=== PATIENT | female | born 1955 | race Caucasian/White ===

== ENCOUNTER 2018-07-04 13:29 | Emergency (ER) | payer OTHER ==
[~2018-07-04] VITALS: Ht 167.6 cm; Wt 92.3 kg
[2018-07-04 13:50] VITALS: Ht 167.6 cm; Wt 92.3 kg
[2018-07-04] MEDS ORDERED: GLUCOPHAGE500 MG PO (13:50)
[2018-07-04] MEDS ORDERED: PERCOCET 10-321 EAC1 PO (13:51)
[2018-07-04 15:43] VITALS: BP 140/71
== END 2018-07-04 15:45 | disposition home or self-care (01) ==
LOC: D.ER 13:29
DX: M17.12 Unilateral primary osteoarthritis, left knee (principal)

== ENCOUNTER 2018-08-08 08:00 | Outpatient (CLI) | payer OTHER ==
[~2018-08-08 08:00] MED LIST: GLUCOPHAGE500 MG PO; PEPCID AC20 MG PO; PERCOCET 10-321 EAC1 PO
[2018-08-13 08:59] VITALS: BMI 32.3
== END 2018-08-08 23:59 | disposition home or self-care (01) ==
LOC: D.OPS 08:00
PROVIDERS: ATTEND Orthopaedic Surgery
DX: S83.242A Other tear of medial meniscus, current injury, left knee, initial encounter (principal)

== ENCOUNTER 2018-08-13 08:00 | Day surgery (SDC) | payer OTHER ==
[2018-08-08 08:20] LABS: BASOPHILS 1.2 % (0-2); EOSINOPHILS 6.2 % (0-7); HEMATOCRIT 39.8 % (36.0-48.0); HEMOGLOBIN 13.4 g/dL (12-16); IMMATURE GRANULOCYTES 0.2 % (0-5); MCH 30.9 pg (26.0-34.0); MCHC 33.7 g/dL (31.0-37.0); MCV 91.9 fL (80.0-100.0); MEAN PLATELET VOLUME 9.1 fL (7.4-10.4); MONOCYTES 8.7 % (2-11); NEUTROPHILS 42.7 % (40-80); PLATELET COUNT 230 10x3/uL (130-400); RBC 4.33 10x6/uL (4.00-5.40); RDW 12.7 % (11.5-14.5); WBC 5.6 10x3/uL (4.8-10.8)
[2018-08-08 08:28] LABS: CALC OSMOLALITY 285 mosm/kg (275-300); CALCIUM 9.1 mg/dL (8.5-10.1); CARBON DIOXIDE 31.8 mmol/L (21.0-32.0); CHLORIDE - SERUM 105 mmol/L (98-107); CREATININE - SERUM 0.7 mg/dL (0.6-1.3); GLUCOSE 78 mg/dL (74-106); POTASSIUM - SERUM 4.4 mmol/L (3.5-5.1); SODIUM 143 mmol/L (136-145); UREA NITROGEN 17 mg/dL (7-18); eGFR NON AFRICAN AMERICAN 90 mL/min (90-120)
[~2018-08-13] VITALS: Ht 167.6 cm; Wt 90.7 kg
[2018-08-13 08:59] VITALS: BP 117/69; Ht 167.6 cm; Wt 90.7 kg
== END 2018-08-13 15:50 | disposition home or self-care (01) ==
LOC: D.OPS 08:00 → D.PAN 13:45 → D.OPS 13:45 → D.PAN 14:30 → D.OPS 14:30
PROVIDERS: ATTEND Orthopaedic Surgery
DX: S83.242A Other tear of medial meniscus, current injury, left knee, initial encounter (principal); S83.282A Other tear of lateral meniscus, current injury, left knee, initial encounter; X58.XXXA Exposure to other specified factors, initial encounter; M94.262 Chondromalacia, left knee; M65.862 Other synovitis and tenosynovitis, left lower leg; M23.42 Loose body in knee, left knee; Z01.812 Encounter for preprocedural laboratory examination